=== PATIENT | male | born 1970 | race Caucasian/White ===

== ENCOUNTER 2017-10-13 05:09 | Inpatient (IN) | payer OTHER ==
[2017-10-13] VITALS (15 sets, daily range): BP systolic 107–135; BP diastolic 63–80
[~2017-10-13] VITALS: Ht 188 cm; Wt 90.7 kg
[~2017-10-13 05:09] MED LIST: BLOOD PRESSURE; CRESTOR10 M1 PO; DIOVAN HCT 80MG1 TAB ORAL; ZOFRAN4 MG ORAL
[2017-10-13] MEDS ORDERED: LR 1000ml 1,000 ML IVLG SCH (06:23)
--- NOTE | 2017-10-13 06:25 | Anethesia Preoperative Eval ---
Anesthesia Pre-op PMH/ROS General Date of Evaluation: Oct 13, 2017 Time of Evaluation: 07:08 Anesthesiologist: Estella ASA Score: ASA 2 Mallampati Score Class I : Soft palate, uvula, fauces, pillars visible Class II: Soft palate, uvula, fauces visible Class III: Soft palate, base of uvula visible Class IV: Only hard plate visible Mallampati Classification: Class II Surgeon: Onesimo Ross Diagnosis: Back Pain Surgical Procedure: ALIF L4-5, PSF L4-5 Anesthesia History: none Family History: no anesthesia problems Allergies: Coded Allergies: PENICILLINS (Verified Allergy, Unknown, 09/29/11) Medications: see eMAR Past Medical History Cardiovascular: Reports: HTN, other - HL PSxH Narrative: Cervical Fusion Anesthesia Pre-op Phys. Exam Physician Exam Last Vital Signs Date Time Temp Pulse Resp B/P (MAP) Pulse Ox O2 Delivery O2 Flow Rate FiO2 10/13/17 05:57 97.1 71 18 133/73 97 Nasal Cannula 97.1 Constitutional: NAD Neurologic: CN 2-12 intact Cardiovascular: RRR Respiratory: CTA Gastrointestinal: S/NT/ND Airway Exam Mallampati Score: Class II MO: full ROM: limited Teeth: intact Anesthesia Pre-op A/P Risk Assessment & Plan Assessment: ASA 2 Plan: GA, BIS, GlideScope Status Change Before Surgery: No Pre-Antibiotics Dru Grams Ancef IV Given Within 1 Hr of Incision: Yes Time Given: 07:21 Vasile Soria MD Oct 13, 2017 06:25
[2017-10-13] MEDS ORDERED: HYDROcodone/Acetamin 7.5/325 tab ORAL PRN ×3 (06:30→16:00)
[2017-10-13] MEDS ORDERED: Atropine Inj 1mg/10ml Syr IV PRN (06:30)
[2017-10-13] MEDS ORDERED: DiphenhydrAMINE 50mg/ml Inj IVP PRN ×2 (06:30→14:15)
[2017-10-13] MEDS ORDERED: Ketorolac 30mg Inj IV PRN ×4 (06:30→14:15)
[2017-10-13] MEDS ORDERED: Acetaminophen (Non formulary) 100 ML IV ONE (06:30)
[2017-10-13] MEDS ORDERED: LORazepam Inj 2mg/ml 1ml IV PRN ×2 (06:30→14:15)
[2017-10-13] MEDS ORDERED: Labetalol 5mg/ml 20ml vial IV PRN ×2 (06:30→14:15)
[2017-10-13] MEDS ORDERED: Hydromorphone 0.5mg/0.5ml inj IVP PRN ×2 (06:30→14:15)
[2017-10-13] MEDS ORDERED: Norco 5mg/325mg tab ORAL PRN ×2 (06:30→16:00)
[2017-10-13] MEDS ORDERED: Midazolam 2mg/2ml Inj IVP PRN ×2 (06:30→14:15)
[2017-10-13] MEDS ORDERED: oxyCODONE HCL/Acetaminophen 5/325mg ORAL PRN (06:30)
[2017-10-13] MEDS ORDERED: fentaNYL 100 mcg/2 mL IV PRN (06:30)
[2017-10-13] MEDS ORDERED: Heparin 5000 units/ml inj ONE (06:50)
[2017-10-13] MEDS ORDERED: Thrombin 5000 units TOPIC ONE (06:50)
[2017-10-13] MEDS ORDERED: Bupivacaine 0.5% Inj 30 ml vial INJ ONE (06:50)
[2017-10-13] MEDS ORDERED: EPINEPHrine 1mg/1ml Amp ONE (06:51)
[2017-10-13] MEDS ORDERED: Surgicel 4in x 8in TOPIC ONE (06:51)
[2017-10-13] MEDS ORDERED: Bacitracin 50000 Units Vial ONE (06:51)
[2017-10-13] MEDS ORDERED: Vancomycin 1gm inj IVPB ONE ×2 (06:51→09:34)
[2017-10-13] MEDS ORDERED: Glycopyrrolate 0.2mg/ml 1ml Vial ONE (07:00)
[2017-10-13] MEDS ORDERED: Lidocaine 1% MPF 10mg/ml 5ml ONE (07:00)
[2017-10-13] MEDS ORDERED: fentaNYL 100 mcg/2 mL IV ONE (07:00)
[2017-10-13] MEDS ORDERED: Midazolam 2mg/2ml Inj ONE (07:00)
[2017-10-13] MEDS ORDERED: NS Irrig 1000ml ONE (07:00)
[2017-10-13] MEDS ORDERED: NS 500ML ONE (07:00)
[2017-10-13] MEDS ORDERED: Dexamethasone 4mg/ml vial ONE (07:00)
[2017-10-13] MEDS ORDERED: LR 1000ml ONE ×2 (07:00)
[2017-10-13] MEDS ORDERED: Neostigmine 1mg/ml 10ml Inj ONE (07:00)
[2017-10-13] MEDS ORDERED: Sterile Water Irrig 1000ml IRRIG ONE (07:00)
[2017-10-13] MEDS ORDERED: Zemuron 50mg/5ml Inj IV ONE (07:00)
[2017-10-13] MEDS ORDERED: Vancomycin 1 GM in D5W 275 ML IVPB ONE (07:00)
[2017-10-13] MEDS ORDERED: Propofol 1,000mg/ 100ml btl IV ONE (07:00)
--- NOTE | 2017-10-13 07:12 | Immediate Post-Op Evaluation ---
Immediate Post-Op Evalulation Immediate Post-Op Evalulation Procedure: ALIF L4-5 Date of Evaluation: Oct 13, 2017 Time of Evaluation: 12:55 IV Fluids: 1300 LR Blood Products: 0 Estimated Blood Loss: 75 Urinary Output: 300 Blood Pressure Systolic: 135 Blood Pressure Diastolic: 80 Pulse Rate: 111 Respiratory Rate: 16 O2 Sat by Pulse Oximetry: 100 Temperature (Fahrenheit): 98.9 Pain Score (1-10): 3 Nausea: No Vomiting: No Complications 0 Patient Status: awake, reacts, patent, extubated, none Hydration Status: adequate Dru Grams Ancef IV Given Within 1 Hr of Incision: Yes Time Given: 07:21 Vasile Soria MD Oct 13, 2017 07:12
--- NOTE | 2017-10-13 07:18 | Pre-Procedure Note/Attestation ---
Pre-Procedure Note/Attestation Complete Prior to Procedure Procedure Narrative: Stage 1 Anterior lumbar interbody fusion of L45 with bmp Stage 2 Posterior hampton laminectomy pedicle screw fixation L45 posterolateral fusion Indications for Procedure Pre-Operative Diagnosis: L45 herniation Attestation I attest that I discussed the nature of the procedure; its benefits; risks and complications; and alternatives (and the risks and benefits of such alternatives ), prior to the procedure, with the patient (or the patient's legal member services representative). I attest that, if there was a reasonable possibility of needing a blood transfusion, the patient (or the patient's legal member services representative) was given the [facility] standardized written summary, pursuant to the Juan Rose Bud Blood Safety Act ([place] Health and Safety Code # 1645, as amended). I attest that I re-evaluated the patient just prior to the surgery and that there has been no change in the patient's H&P, except as documented below: Solis Ross MD Oct 13, 2017 07:18
--- NOTE | 2017-10-13 07:20 | Brief Operative Note ---
Immediate Post Operative Note Operative Note Chief Complaint: Lumbar pain and radicular pains Pre-op Diagnosis: L45 herniation Procedure: Stage 1 Anterior lumbar interbody fusion of L45 with bmp Stage 2 Posterior hampton laminectomy pedicle screw fixation L45 posterolateral fusion Post-op Diagnosis: same as pre-op Surgeon: Vandana Bariatric Coordinator: Malia Anesthesiologist: Estella Anesthesia: general Specimen: none Complications: none Condition: stable Estimated Blood Loss: minimal Drains: none Implant(s) used?: Yes - Nuvasive Brigade and Pedicle screw synthes Solis Ross MD Oct 13, 2017 07:20
[2017-10-13] MEDS ORDERED: NS Irrig 1000ml IRRIG ONE (07:36)
[2017-10-13] MEDS: Docusate 100mg cap ORAL SCH ×2 (09:00→17:37)
--- NOTE | 2017-10-13 14:57 | Diagnostic Imaging Report ---
Indication: Back pain, bilateral lower extremity pain, intraoperative Technique: Intraoperative images Comparison: none Findings: Intraoperative images document posterior and anterior fusion at what is presumably L4-5 Impression: Intraoperative images, as described
--- NOTE | 2017-10-13 15:45 | Operative Note - Dictated ---
DATE OF OPERATION: 10/13/2017 SURGEONS: 1. Brandon Finley M.D. (for the approach). 2. Solis Ross M.D. (for the spine procedure). ANESTHESIOLOGIST: Vasile Soria M.D. ANESTHESIA: General endotracheal. PREOPERATIVE DIAGNOSIS: Disk disease, L4-L5 (1 interspace). POSTOPERATIVE DIAGNOSIS: Disk disease, L4-L5 (1 interspace). OPERATIVE PROCEDURE: 1. Muscle sparing anterior abdominal extraperitoneal approach for anterior lumbar interbody fusion, L4-L5 (1 interspace). 2. Mobilization of left iliac artery and aorta. 3. Mobilization of left iliac vein. 4. Ligation of the ilial lumbar veins. 5. Exposure of the anterior surface of the spine at L4-L5 (1 interspace). INFORMED CONSENT: The procedure of anterior access for an anterior lumbar interbody fusion was explained in detail to the patient preoperatively via the phone and repeated in the preoperative holding area on the day of surgery. The risks including hemorrhage, infection, vascular injury, ureteral injury, nerve injury, visceral injury, retrograde ejaculation, and lymphedema were explained in detail. The patient stated that he understood the procedure, its rationale and risks. He stated that he had no further questions and accepted the surgery as outlined above. Background information, indications for surgery, description of operative findings and specimens removed, will be contained in Dr. Ross's operative report. OPERATIVE FINDINGS PERTINENT TO THE APPROACH: All the retroperitoneal structures were normal. OPERATIVE PROCEDURE: The patient was brought to the operating room in a stable condition. Monitoring was instituted with arterial line, ECG, O2 saturation monitoring, and blood pressure cuff. A pulse oximeter was placed on the left foot to monitor circulation to the left lower extremity. The patient was induced with anesthesia without any difficulty. The patient was prepared and draped in a sterile fashion. Using x-ray and fluoroscopy, the level for the L4-L5 disc was marked on the skin. A left transverse incision was made just below the level of the umbilicus going from the midline to the edge of the left rectus muscle. The incision was carried down through the subcutaneous tissue to the rectus fascia. The rectus fascia was incised with the cautery with extension into the fibers of the external oblique aponeurosis. Elevation of the rectus fascia away from the anterior surface of the muscle was carried out for a distance of approximately 5 cm caudad and cephalad. This allowed for retraction of the rectus muscle both medially and laterally in order to obtain direct A-P access to the spine. The inferior epigastric vessels were identified and preserved. The posterior rectus sheath was incised and carefully from the peritoneum, taking care not to enter the peritoneal cavity. The peritoneum was bluntly dissected away from the under surface of the internal oblique muscle. Careful blunt dissection was used to elevate the peritoneum anteriorly until the psoas muscle was identified. The ureter was also identified and swept upwards with the peritoneum and its contents. Further dissection was used to expose the anterior surface of the left common iliac artery. A Braden retractor was placed into the retroperitoneum lateral to the rectus muscle. A lap sponge was inserted over the psoas muscle and pushed superiorly to keep the abdominal contents out of the way with a Kibmerli retractor. Careful sharp and blunt dissection was used to expose the entire length of the common iliac artery to its origin at the aortic bifurcation. Exposure of the L4-L5 disc was carried out as follows: Dissection along the lateral wall of the artery was carried out to expose the lateral border of the left common iliac vein, which lies under and slightly to the right of the artery. With extreme care, the left iliac vein was exposed in its entirety and deep dissection carried out to expose the iliolumbar vein. The iliolumbar vein was carefully doubly ligated proximally and distally and transected. Any other venous tributaries in the area were controlled with cautery. This allowed for mobilization of the iliac vessels and aorta anteriorly and to the right, to allow proper visualization of the anterior surface of the spine at L4-L5. This was done with careful blunt dissection in order to peel away the common iliac vein from the anterior longitudinal ligament to which it is very closely approximated. After skeletonizing the iliac vessels all the way to the aortic bifurcation, a malleable retractor was placed under the vein and artery in order to elevate the vessels anteriorly together with the aorta. Careful dissection along the anterior surface of the spine was carried out to preserve the sympathetic chain laterally, as well as, the sympathetic plexus which lies anteriorly overlying the aortic bifurcation. Further careful sharp and blunt dissection was carried out to expose the anterior surface of the spine at the L4-L5 disc space all the way to its right lateral surface. Any segmental vessels lying along the anterior surface of the affected vertebral bodies were transected between clips and/or cauterized in order to adequately elevate the aorta from the anterior surface of the spine. The psoas muscle was from the lateral border of the spine, on the left, using blunt dissection. Use of the electrocautery was kept to a minimum in this area to avoid injury to the sympathetic fibers. After proper skeletonization and mobilization of the vessels and preservation of all vital structures, the exposure was complete and the Braden-Kimberli retractor combination was removed and the table held retractor system deployed. The retractor blades were placed for exposure of the L4-L5 disc as follows: The first retractor blade was slipped under the vessels and it is lipped tip brought to the right side of the spine. It was used to elevate the vessels away from the anterior surface of the spine. This allowed exposure and direct A-P approach to the anterior surface of the spine. Another retractor blade was placed on the left side of the spine to complete the approach. Additional retractor blades were placed superiorly and inferiorly. A needle was placed to identify the midline and appropriate level under fluoroscopy. Dr. Ross proceeded to perform any diskectomy, partial vertebrectomy, and fusion using the appropriate technique and hardware. After the diskectomy and fusion was completed, irrigation with antibiotic solution was carried out. The integrity of the iliac vessels was checked to make sure there is no tear or thrombosis of the vein and there was adequate flow through the artery with no evidence of spasm or thrombosis. A further check for hemostasis was made and the integrity of the ureter was verified. The peritoneum was allowed to return to its anatomical position. The posterior rectus sheath was closed with a continuous suture of 2-0 Vicryl. The anterior rectus sheath was closed with a continuous suture of number 1 Vicryl. A continuous subcuticular suture of 2-0 Vicryl was used to approximate the subcutaneous tissue and skin. Steri-Strips and a sterile dressing were applied. The patient remained in the operating room under anesthesia, in stable condition and prepared for the posterior portion of the procedure. There were excellent dorsalis pedis and posterior tibial pulses in both feet. The left foot oxygen saturation monitor showed a triphasic waveform with 100% oxygen saturation. Manual and visual sweeps were correct. Estimated blood loss from the procedure was minimal and approximately 25 mL. Final sponge, needle, and instrument counts were verified as correct x2. Brandon Finley M.D. DR: ED JOB#: [id number] CC: Solis Ross M.D.; Fax#: [phone]
[2017-10-13] MEDS ORDERED: Naloxone 0.4mg/ml Inj IVP PRN (16:00)
[2017-10-13] MEDS ORDERED: Morphine Sulfate 4mg/ml Inj SUBQ PRN ×2 (16:00)
[2017-10-13] MEDS ORDERED: Milk of Magnesia 30ml Ud ORAL PRN (16:00)
[2017-10-13] MEDS ORDERED: HYDROmorphone 1mg/ml Carpuject IVP PRN (16:00)
[2017-10-13] MEDS ORDERED: Chloraseptic Spray 20mL Bottle ORAL PRN (17:00)
[2017-10-13] MEDS: Vancomycin 1 GM in D5W 275 ML IVPB SCH (17:36)
[2017-10-13] MEDS: NS w/KCl 20mEq 1,000 ML IV SCH (17:36)
[2017-10-13] MEDS: Dexamethasone 4mg/ml vial IVP SCH ×2 (17:36→23:15)
[2017-10-13] MEDS: Morphine Sulfate 4mg/ml Inj SUBQ PRN ×2 (20:07→23:14)
[2017-10-13] MEDS ORDERED: CRESTOR 20 MG ORAL SCH (22:00)
[2017-10-14] MEDS: Morphine Sulfate 4mg/ml Inj SUBQ PRN (02:57)
[2017-10-14] MEDS: NS w/KCl 20mEq 1,000 ML IV SCH (03:01)
[2017-10-14 04:00] VITALS: BP 126/63
[2017-10-14] MEDS: Vancomycin 1 GM in D5W 275 ML IVPB SCH (05:54)
[2017-10-14] MEDS: Dexamethasone 4mg/ml vial IVP SCH (05:54)
[2017-10-14] MEDS ORDERED: Lidocaine 1% Plain 30 ml INJ ONE (07:00)
[2017-10-14 08:00] VITALS: BP 123/76
--- NOTE | 2017-10-14 08:02 | 48 Hour Post Anesthesia Eval ---
Post Anesthesia Evaluation Procedure: ALIF L4-5 Date of Evaluation: Oct 14, 2017 Time of Evaluation: 07:30 Blood Pressure Systolic: 126 0: 63 Pulse Rate: 71 Respiratory Rate: 19 Temperature (Fahrenheit): 98.2 O2 Sat by Pulse Oximetry: 98 Airway: patent Nausea: No Vomiting: No Pain Intensity: 2 Hydration Status: adequate Cardiopulmonary Status: at baseline Mental Status/LOC: patient returned to baseline Post-Anesthesia Complications: 0 Follow-up care needed: N/A - further care as per primary team MINOR CARRANZA M.D. Oct 14, 2017 08:02
[2017-10-14] MEDS ORDERED: VALSARTAN HCTZ ORAL SCH (09:00)
[2017-10-14] MEDS: Docusate 100mg cap ORAL SCH (09:55)
[2017-10-14] MEDS ORDERED: NORCO 10-325 T1 EACH ORAL (11:01)
[2017-10-14 12:00] VITALS: BP 130/68
--- NOTE | 2017-10-14 23:46 | Operative Note - Dictated ---
DATE OF OPERATION: 10/13/2017 NOTE: Exposure surgeon, vascular surgeon, EBL, side not dictated. Stage 1 of 2. SURGEON: Solis Ross M.D., Orthopaedic Spine Surgeon. EXPOSURE SURGEON: ANESTHESIA: General endotracheal anesthesia. PREOPERATIVE DIAGNOSES: 1. Intractable back pain. 2. Intractable leg pain. 3. Worsening radiculopathy. 4. Weakness. 5. Herniated nucleus pulposus, L4-L5 herniation. 6. Neural foraminal stenosis, L4-L5 herniation. POSTOPERATIVE DIAGNOSES: 1. Intractable back pain. 2. Intractable leg pain. 3. Worsening radiculopathy. 4. Weakness. 5. Herniated nucleus pulposus, L4-L5 herniation. 6. Neural foraminal stenosis, L4-L5 herniation. PROCEDURES PERFORMED: 1. Radical anterior lumbar intervertebral L4-L5 discectomy. 2. Anterior lumbar interbody fusion using NuVasive PEEK cage size #14 mm and bone morphogenetic protein with allograft Chad putty 5 mL. 3. Anterior lumbar plating and fixation at L4-L5 using #4 screws of 25 mm in length. 4. Anterior retroperitoneal exposure. 5. Supervision and interpretation of intraoperative fluoroscopy. 6. Supervision and interpretation of somatosensory-evoked potential and free-running EMG monitoring. ESTIMATED BLOOD LOSS: mL. COMPLICATIONS: None. INDICATIONS FOR THE PROCEDURE: The patient is a 47-year-old male who presents for intractable back pain and radiculopathy which is well documented in our clinical chart and records. We had a long discussion with Simone regarding definitive surgical treatment options. We had a long discussion with the patient regarding the risks, alternatives, and benefits of procedure. Our description of the risks included a discussion in person as well as a signed consent which detailed all pertinent risks and the procedure itself. Briefly, our discussion included but was not limited to infection, bleeding, pseudarthrosis, spinal cord injury, neurovascular injury, dural tear, CSF leak, neuropathy, paralysis, permanent weakness/drop foot, paresthesias, blindness, palsy, and weakness. The patient understood there may be a need for revision surgery or additional procedures. Approach-related complications including dysphonia, dysphagia, blindness, permanent vocal cord and neural injury, hematoma, swallowing and breathing difficulty; medical complications including liver, kidney, shock, and cardiopulmonary failure; anesthesia complications including , swelling, damage to the musculature, larynx, esophagus, trachea, blood vessels and muscles, and lungs during this surgical procedure. Injury to deeper structures may be temporary or permanent. The patient understood these and elected to proceed. A written and verbal consent was given. We discussed the pros and cons of all the alternatives. We discussed the uncertainties associated with the decision. Afterwards I assessed the patients understanding and explored their preferences. All questions were answered and no guarantees were given. Medical clearance was obtained prior to surgery. OPERATIVE FINDINGS: A broad-based disc herniation at L4-L5 was encountered, which encroached on the thecal sac and neural foraminal elements therein. This L4-L5 disc was acute in nature and not calcified. It was mobile and free-floating and resected easily. There was also neural foraminal stenosis at L4-L5. DESCRIPTION OF PROCEDURE: Under the benefit of general endotracheal anesthesia and with the assistance of the entire operative team, the patient was moved from the [place] onto the operative table in the supine position on a radiolucent frame. The head was secured and positioned appropriately. Bilateral arms were secured with GelPads and foam and all bony prominences were padded. The bilateral lower extremity SCD and PRISCILA hose were placed for DVT prophylaxis. A surgical timeout was called which corroborated our planned procedure. Preoperative antibiotics were administered within 30 minutes of the incision for prophylaxis. Using lateral radiography, the operative levels were delineated. An incision was marked based on our interpretation of lateral radiography and afterwards the body was prepped and draped in the usual sterile manner. The family was notified that we were ready to commence surgery and were called in the waiting room hourly for updates. An incision was based on our lateral fluoroscopic image to center the incision at the L4-L5 interspace. The wound was prepped and draped in the usual sterile fashion. Using a scalpel, a standard retroperitoneal exposure was performed by our vascular surgeon, and this is delineated in a separate operative note. After appropriate exposure at the L4-L5 disc space, we next turned our attention towards our radical discectomy. This was performed in standard fashion first beginning with a gentle mobilization of all superficial soft tissue overlying the disc space with Kittners. After this was performed, we marked our midline and confirmed our disc space on AP and lateral fluoroscopy. Next, using a #10 blade long-handled scalpel, the disc was resected from the endplates in a box discectomy technique. Next using Pimentel elevators, the disc was mobilized off each endplate. After this, using a large Leksell rongeurs, the entire disc was removed from the intervertebral space. All residual disc and cartilaginous endplates were resected using a combination of small and medium curettage, pituitaries, size 4 and size 6 Kerrison rongeurs. Next, the endplates were distracted in a parallel fashion using the Alvino film maker and a 7.5 Thandle. At this point, the PLL was resected using a small curette and a Kerrison 4 rongeur. Next the endplates were resected down to bleeding subchondral bone using a ring and box curette. For any residual bleeding which we encountered at this point, this was maintained and controlled with a combination of FloSeal, Gelfoam, and bipolar cautery. Afterwards, Tisseel was used to seal the discectomy site dorsally. Next I then trialed the interspace for height, width, and depth. This was confirmed on fluoroscopy and once satisfied with our fit, we loaded and inserted a NuVasive PEEK cage size #14 with bone morphogenetic protein and with allograft Chad bone under AP and lateral fluoroscopy. AP and lateral fluoroscopy confirmed excellent placement at the L4-L5 interspace. Afterwards, we turned our attention towards plating from the Synthes. This anterior lumbar plating and fixation at L4-L5 using #4 screws of 25 mm in length. Final radiographs confirmed appropriate placement of all hardware, screws, and our PEEK cages along with a anabaptism of the lumbar lordosis. Afterwards, Tisseel was used to seal the discectomy site ventrally. FloSeal and Zosyn antibiotics were placed directly on the anterior fusion site. The wounds were copiously irrigated with antibiotic-impregnated saline. Afterwards, FloSeal was placed to address residual bleeding. Powdered antibiotics were directly poured into the wound to provide for direct antibiosis. Next, I turned my attention to closure. Fascial closure was performed with 1-0 Vicryl suture. Subcutaneous tissues were reapproximated with 2-0 Vicryl. The superficial subcutaneous skin was closed with running Monocryl and Dermabond. Dressings consisted of Tegaderm and 4 x 4 gauze. The patient tolerated the procedure well and after discussion with our vascular surgeon and our anesthesiologist, we made the determination to proceed with stage 2 of 2, our posterior-based approach. The details of stage 1 of the surgery were related to the patients family/representatives upon the conclusion of the procedure in the family waiting room. Stage 2 of 2. DATE OF OPERATION: 10/13/2017 SURGEON: Solis Ross M.D., Orthopaedic Spine Surgeon. ANESTHESIA: General endotracheal anesthesia. PREOPERATIVE DIAGNOSES: 1. Intractable back pain. 2. Intractable leg pain. 3. Worsening radiculopathy. 4. Weakness. 5. Herniated nucleus pulposus, L4-L5 herniation. 6. Neural foraminal stenosis, L4-L5. POSTOPERATIVE DIAGNOSES: 1. Intractable back pain. 2. Intractable leg pain. 3. Worsening radiculopathy. 4. Weakness. 5. Herniated nucleus pulposus, L4-L5 herniation. 6. Neural foraminal stenosis, L4-L5. PROCEDURES PERFORMED: 1. Aguilar laminectomy/Nazario-Toro osteotomy, and complete facetectomy at L4-L5. 2. L4-L5 posterolateral fusion using allograft bone, local autograft, and residual bone morphogenetic protein. 3. Percutaneous pedicle screw fixation at L4-L5 using four Synthes type of screws of 40 mm in length of 6 mm diameter. 4. Confirmation of pedicle screws placement using neural monitoring. 5. Use of intraoperative microscope. 6. Supervision and interpretation of intraoperative fluoroscopy. 7. Supervision and interpretation of somatosensory-evoked potential and free-running EMG monitoring. ESTIMATED BLOOD LOSS: mL. COMPLICATIONS: None. INDICATIONS FOR THE PROCEDURE: The patient is a 47-year-old male who presents for stage 2 in regard to their intractable back pain and radiculopathy. This operative note details the second stage of our surgery. Prior to surgery, we had a long discussion with Simone regarding definitive surgical treatment options. We had a long discussion with the patient regarding the risks, alternatives, and benefits of procedure. Our description of the risks included a discussion in person as well as a signed consent which detailed all pertinent risks and the procedure itself. Briefly, our discussion included but was not limited to infection, bleeding, pseudarthrosis, spinal cord injury, neurovascular injury, dural tear, CSF leak, neuropathy, paralysis, permanent weakness/drop foot, paresthesias, blindness, palsy, and weakness. The patient understood there may be a need for revision surgery or additional procedures. Approach-related complications including dysphonia, dysphagia, blindness, permanent vocal cord and neural injury, hematoma, swallowing and breathing difficulty; medical complications including liver, kidney, shock, and cardiopulmonary failure; anesthesia complications including , swelling, damage to the musculature, larynx, esophagus, trachea, blood vessels and muscles, and lungs during this surgical procedure. Injury to deeper structures may be temporary or permanent. The patient understood these and elected to proceed. A written and verbal consent was given. We discussed the pros and cons of all the alternatives. We discussed the uncertainties associated with the decision. Afterwards I assessed the patients understanding and explored their preferences. All questions were answered and no guarantees were given. This now delineates the second stage of the procedure. OPERATIVE FINDINGS: A significant amount of neural foraminal encroachment along the thecal sac and neural foraminal elements therein. This neural foraminal stenosis at L4-L5 was more than appreciated on the MRI. DESCRIPTION OF PROCEDURE: Under the benefit of general endotracheal anesthesia and with the assistance of the entire operative team, the patient was moved from the radiolucent operative table in the prone position onto a Tyler frame. The head was secured and positioned appropriately. Bilateral arms were secured with GelPads and foam and all bony prominences were padded. The bilateral lower extremity SCD and PRISCILA hose we replaced for DVT prophylaxis. A surgical timeout was called which corroborated our planned procedure. Preoperative antibiotics were administered within 30 minutes of the incision for prophylaxis. Using lateral radiography, the operative levels were delineated. An incision was marked based on our interpretation of anterior, posterior, and lateral radiography and afterwards the body was prepped and draped in the usual sterile manner. The family was notified that we were ready to commence surgery and were called in the waiting room hourly for updates. An incision was based on our anterior, posterior, and lateral fluoroscopic image to center the incision at the L4-L5 interspace. The wound was prepped and draped in the usual sterile fashion. Using a scalpel, a midline incision was made and the subcutaneous tissue was mobilized so that within the fascia, two Xavi-based incisions were made, one incision on the side focusing on his pedicle at L4-L5 through a percutaneous stab wound approach. All pedicles were cannulated in the exact same fashion for each level. This was performed in the following manner. The second incision was made slightly off midline and geared towards his L4-L5 interspace approached. Using Tere needles under direct AP and lateral fluoroscopic visualization, I approached the L4-L5 pedicles with Jamshidi needles making sure to leave clearance along the medial pedicle boundary/wall, and next we advanced our bilateral pedicle screw entry points under AP and lateral fluoroscopy at both our pedicles bilaterally. Next, percutaneous screws were loaded on the side and on the contralateral side, . Screws were inserted in percutaneous fashion and afterwards these screws were stimulated. Next, a gracie was lordosed and placed percutaneously through the incision. Next, we turned our attention to our Nazario-Toro type osteotomy, facetectomy, and decompression. This was performed at each level in the exact same fashion. Based on AP and lateral fluoroscopy, we centered this incision over the facet joints at L4-L5 of the contralateral side. This was taken down through the skin and subcutaneous tissues until the overlying pars facet joints of L4-L5 were visualized under microscopic visualization. There was severe pressure on this neural foramina as palpated with the [facility] dental and a Dodson ball probe. The pars was then visualized on the contralateral side and this was carefully resected along with the lamina and superior articular process using a [employer]xx AM8 drill bit. This was completely resected using a Nazario-Toro type osteotomy and medial laminar removal and facetectomy. There was a significant amount of bleeding which we encountered at this point and this was maintained and controlled with a combination of FloSeal, Gelfoam, and bipolar cautery. After complete resection of the facet joints, we noticed the lateral thecal sac margin and the neural elements. Next, I turned my attention to the stimulation of pedicle screws. All pedicle screws were stimulated with somatosensory-evoked potentials ranging over 20 milliampere with no response. Afterwards percutaneous rods from the Synthes pedicle screw system were inserted and placed percutaneously and locking caps were placed. Final radiographs confirmed appropriate placement of all hardware, screws, and our PEEK cages along with a anabaptism of the lumbar lordosis. The wounds were copiously irrigated with antibiotic-impregnated saline. Afterwards, FloSeal was placed to address residual bleeding. Powdered antibiotics were directly poured into the wound to provide for direct antibiosis. Next I turned my attention to closure. Fascial closure was performed with 1-0 Vicryl suture. Subcutaneous tissues were reapproximated with 2-0 Vicryl. The superficial subcutaneous skin was closed with a running Monocryl and Dermabond. Dressings consisted of Tegaderm and 4 x 4 gauze. The patient tolerated the procedure well and will now be admitted to the spine floor for further observation. The details of the entire surgery were related to the patients family/representatives upon the conclusion of the procedure in the family waiting room. Solis Ross M.D. DR: Demetrice JOB#: [id number] CC:
--- NOTE | 2017-10-15 10:54 | Discharge Summary ---
Discharge Summary Hospital Course Date of Admission Oct 13, 2017 at 05:09 Date of Discharge Oct 14, 2017 at 11:45 Admitting Diagnosis PATRICIA Fallon is a 47 year old male who was admitted on Oct 13, 2017 at 05:09 for Cervical Herniated Nucleus Procedures PROCEDURES PERFORMED by Dr Ross: 1. Radical anterior lumbar intervertebral L4-L5 discectomy. 2. Anterior lumbar interbody fusion using NuVasive PEEK cage size #14 mm and bone morphogenetic protein with allograft [place] putty 5 mL. 3. Anterior lumbar plating and fixation at L4-L5 using #4 screws of 25 mm in length. 4. Anterior retroperitoneal exposure. 5. Supervision and interpretation of intraoperative fluoroscopy. 6. Supervision and interpretation of somatosensory-evoked potential and free-running EMG monitoring. OPERATIVE PROCEDURE performed by : 1. Muscle sparing anterior abdominal extraperitoneal approach for anterior lumbar interbody fusion, L4-L5 (1 interspace). 2. Mobilization of left iliac artery and aorta. 3. Mobilization of left iliac vein. 4. Ligation of the ilial lumbar veins. 5. Exposure of the anterior surface of the spine at L4-L5 (1 interspace). Hospital Course The patient is a 47-year-old male who presents for intractable back pain and radiculopathy was admitted on 10/13/17 and under went lumbar surgery. Post-operatively, he was given pain management and was placed on SCDs for DVT prophylaxis. He was initially started on clear liquid diet and diet was eventually advanced. He underwent PT evaluation and treatment. He had stable vital signs, and had good pain control, he was ambulating well. He was eventually discharged home, to follow-up in a week as outpatient. PREOPERATIVE DIAGNOSES: 1. Intractable back pain. 2. Intractable leg pain. 3. Worsening radiculopathy. 4. Weakness. 5. Herniated nucleus pulposus, L4-L5 herniation. 6. Neural foraminal stenosis, L4-L5 herniation. POSTOPERATIVE DIAGNOSES: 1. Intractable back pain. 2. Intractable leg pain. 3. Worsening radiculopathy. 4. Weakness. 5. Herniated nucleus pulposus, L4-L5 herniation. 6. Neural foraminal stenosis, L4-L5 herniation. --I have been assigned to complete a DC summary on this account, I was not involved with the management.--Abelardo Spencer NP-- Discharge Discharge Disposition Patient was discharged to Home ( Jazmin Spencer NP Oct 15, 2017 10:54
== END 2017-10-14 11:45 | disposition home or self-care (01) | DRG 460 ==
LOC: SDSOVERFLO 05:09 → 3E 15:02
PROC: 4A11X4G Monitoring of Peripheral Nervous Electrical Activity, Intraoperative, External Approach (ICD-10-PCS; principal; 2017-10-13 07:00)
PROC: 0SG00A0 Fusion of Lumbar Vertebral Joint with Interbody Fusion Device, Anterior Approach, Anterior Column, Open Approach (ICD-10-PCS; principal; 2017-10-13 07:00)
PROC: 0ST20ZZ Resection of Lumbar Vertebral Disc, Open Approach (ICD-10-PCS; principal; 2017-10-13 07:00)
DX: M51.16 Intervertebral disc disorders with radiculopathy, lumbar region (principal); M48.061 Spinal stenosis, lumbar region without neurogenic claudication; E78.00 Pure hypercholesterolemia, unspecified; I10 Essential (primary) hypertension
CPT/HCPCS: 36415; 72020; 76001; 86850; 86900; 86901; 87081; 94003; 94150; J2250; J2405; J2710